=== PATIENT | female | born 1960 | race Caucasian/White ===

== ENCOUNTER 2025-04-30 11:08 | Outpatient (OUT) | payer MEDICARE, SELFPAY ==
[2025-04-30 11:47] LABS: Basophils Percent Auto 0.5 % (0.2-2.0); Eosinophils Absolute Auto 0.1 10^3/uL (0.0-0.7); Eosinophils Percent Auto 2.7 % (0.9-7.0); Hematocrit 34.5 % (36.0-48.0); Hemoglobin 11.1 g/dL (12.0-16.0); Immature Granulocytes Abs Auto 0.01 10^3/uL (0.00-0.03); Immature Granulocytes Pct Auto 0.3 % (0.0-0.5); Lymphocytes Absolute Auto 0.9 10^3/uL (1.2-3.8); Lymphocytes Percent Auto 22.8 % (20.5-60.0); Mean Corpuscular HGB Conc 32.2 g/dL (29.9-35.2); Mean Corpuscular Volume 93.2 fL (81.0-99.0); Mean Platelet Volume 9.9 fL (9.5-13.5); Monocytes Absolute Auto 0.5 10^3/uL (0.3-0.8); Monocytes Percent Auto 11.9 % (1.7-12.0); Neutrophils Absolute Auto 2.3 10^3/uL (1.4-6.5); Neutrophils Percent Auto 61.8 % (43.0-75.0); Platelet Count 170 10^3/uL (150-450); White Blood Count 3.8 10^3/uL (4.0-11.0)
[2025-04-30 11:49] LABS: Bilirubin Urine NEGATIVE (NEGATIVE); Blood Urine NEGATIVE (NEGATIVE); Clarity Urine CLEAR (CLEAR); Color Urine LT. YELLOW (YELLOW); Glucose Urine UA NEGATIVE (NEGATIVE); Ketones Urine NEGATIVE (NEGATIVE); Leukocyte Esterase Urine SMALL (NEGATIVE); Nitrite Urine NEGATIVE (NEGATIVE); Protein Urine NEGATIVE (NEG/TRACE); Urobilinogen Urine 0.2 EU/dL (0.2-1.0)
[2025-04-30 11:50] LABS: Urine Microscopic Indicated YES
[2025-04-30 11:55] LABS: Bacteria Urine TRACE #/HPF (NONE SEEN); Cast Seen? NONE SEEN #/LPF (NONE SEEN); Crystals Seen? None Seen #/HPF (None Seen); Mucus Urine NONE SEEN (NONE SEEN); RBC Urine 0-2 #/HPF (0-2); Squamous Epithelial Cell Urine FEW #/LPF (NONE/RARE)
[2025-04-30 12:11] LABS: Creatinine Urine Random 46.99 mg/dL (20.00-300.00); Microalbum Creatinine Ratio Ur 31.9 mg/g (0.0-29.9); Microalbumin Urine Random 1.5 mg/dL (<=30.0)
[2025-04-30 13:14] LABS: Sodium 148 mmol/L (136-145)
[2025-04-30 13:15] LABS: Alanine Aminotransferase 27 U/L (14-59); Alkaline Phosphatase 89 U/L (46-116); Anion Gap 14.9; Aspartate Amino Transferase 24 U/L (15-37); BUN Creatinine Ratio 38.2; Bilirubin Total 0.7 mg/dL (0.2-1.0); Calcium 9.2 mg/dL (8.5-10.1); Carbon Dioxide 29.1 mmol/L (21.0-32.0); Chloride 108 mmol/L (98-107); Estimated GFR (African America >60 (>=60 mL/min/1.73m^2); Estimated GFR (Non-African Ame >60 (>=60 mL/min/1.73m^2); Glucose 83 mg/dL (74-106)
[2025-04-30 13:16] LABS: Albumin Globulin Ratio 1.2; Albumin Level 3.8 g/dL (3.4-5.0); Chol HDL Ratio 2.2; Cholesterol 148 mg/dL (<=200); Globulin 3.3 g/dL; HDL Cholesterol 68 mg/dL (40-60); Thyroid Stimulating Hormone 1.939 uIU/mL (0.358-3.740); Total Protein 7.1 g/dL (6.4-8.2); Triglycerides 40 mg/dL (<=150)
[2025-04-30 13:31] LABS: Free T4 1.17 ng/dL (0.76-1.46)
== END 2025-04-30 11:09 | disposition home or self-care (01) ==
LOC: LAB 11:16
PROVIDERS: PCP Nurse Practitioner; Visit Provider Nurse Practitioner
DX: E78.2 Mixed hyperlipidemia (principal); I10 Essential (primary) hypertension; E06.3 Autoimmune thyroiditis; J30.1 Allergic rhinitis due to pollen
CPT/HCPCS: 36415; 80053; 80061; 81001; 82043; 82570; 84439; 84443; 85025

== ENCOUNTER 2025-10-09 12:24 | Outpatient (OUT) | payer MEDICARE, SELFPAY ==
--- OUTSIDE RECORDS SUMMARY | 2025-10-09 07:03 | XMS_ITS | Continuity of Care Document ---
Author Organization [facility] Address [address] [place] [address] Phone Care Team Providers Care Lounge Car Attendant Name Role Phone Sonam Ma NP-C Primary Care Provider [phone] Sonam Ma NP-C Attending Provider Care Teams Patient Care Team Team Status: Active Member Role/Relationship Status Dates Sonam Ma NP-Juanito Primary Care Provider Active Patient Care Team Team Status: Inactive Member Role/Relationship Status Dates Sonam Ma NP-C Primary Care Provider Active Start: October 09, 2025 End: October 09, 2025Sonam Ma NP-CAttending ProviderActiveStart: October 09, 2025 End: October 09, 2025 Chief Complaint and Reason for Visit Chief Complaint Admit Date Med Review October 09, 2025 11:30am Reason for Visit Admit Date Essential hypertension October 09 11:30am Hyperlipidemia, unspecified September 11:30am 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 October 09, 2025 11:30am Lower extremity edema October 09 11:30am Microcytic anemia October 09, 2025 11:30am Seasonal allergic rhinitis due to pollen October 09, 2025 11:30am Allergies, Adverse Reactions, Alerts Allergen Type Severity Reaction Last Updated Verified Status latex Allergy Unknown Unknown Reaction October 09, 2025 11:42am Yes Active penicillin G Allergy Unknown hives September 11:42am Yes Active Social History Smoking Status Status Start Date End Date Date of Observa tion Never smoked tobacco (finding) October 02, 2025 2:41pm Observation Status Observation Response Date of Response Legal Sex Female (finding) Sex Assigned At BirthFemaleJuly 1959 Family History Relationship Condition Age at Onset Recorded Date/T tin father Unknown History of malignant neoplasm of prostateUnknownMalignant neoplasmUnknownmother Heart diseaseUnknownHistory of strokeUnknownHypertensionUnknownDeceasedUnknown Problems Active Problems Problem Diagnosis/Recorded Date Onset Date Stat us Encounter for subsequent [facility] wellness visit (AWV) in Medicare patient October 08, 2025 7:39am Unknown A ctive Lower extremity edema October 09, 2025 6:47am Unkno wn Active Colon cancer screening October 08, 2025 7:39am Unkn own Active Encounter for screening mamm ogram for malignant neoplasm of breast October 08, 2025 7:39am Unknown Acti ve Hyperlipidemia, unspecified October 08, 2025 7:41am Unknown Active Other neutropenia October 08, 2025 7:40am Unknown Active Microcytic anemia October 08, 2025 7:40am Unknown Active Essential hypertension September 17, 2025 5:04pm Unkno wn Active 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 October 08, 2025 7:41am Unknown Active Seasonal allergic rhinitis due to pollen September 7:41am Unknown Active Medications Medication Status Dose Units Route Directions Qty Days Refills S tart Date Stop Date End Date Reason(s) Instructions Adherence Carvedilol 25 mg tablet Active 25 MG PO Twice da efra 180 0October 2024 11:00pmPrimary hypertension Essential (primary) hypertensionmust administer with a meal/foodComplies with drug therapyAtorvastatin 20 mg getaaoOzoird15HJQFFxmsd at bedtimeOctober 09, 2025 12:00amComplies with drug therapyLevothyroxine 25 mcg glhhayJxzpiz63QXZVB DailyCaromont Health2024 12:00amComplies with drug therapyFurosemide (Lasix) 20 mg uumoquNzvyvf57ZYNEIjyzuVmlfkaow 13th, 2025 12:00amComplies with drug therapy Losartan 100 mg yfxpxaEmxemh641GXCHOpxcfOuvqzbvl 13th, 2025 12:00amComplies with drug therapyFluticasone Propionate (Flonase Allergy Relief) 50 mcg/actuation spray,jmndygxzcqLxvtowgxhohc1UGDCQQETSWVRSTYXmjyoTxqhaqlw 13th, 2025 12:00am October 09, 2025 11:43amadminister into each nostrilLoratadine 10 mg tablet Lkmpfrhsvtgl11IDSQWbkthIagomuxz 13th, 2025 12:00amNovember 2024 11:43am Fluticasone Propionate (Flonase Allergy Relief) 50 mcg/actuation spray,cphjdixhltVovksd4AMABWTUOYABZNVRFxjqf as neededOctober 09, 2025 11:42am administer into each nostrilComplies with drug therapyLoratadine 10 mg tablet Cqcpqk61XVCVBtwlf as neededOctober 09, 2025 11:42amComplies with drug therapy Vital Signs Vital Reading Result Reference Range Collection Date/Time Height 63 [in_i] October 09, 2025 11:88odUavldy56.98 kgOctober 09, 2025 11:33amBody Eutewdngzvx75.1 [degF]97.6-99.0October 09, 2025 11:33amHeart Rate71 /min 60-100October 09, 2025 11:33amRespiratory rate16 /ubl43-93BsdjkiyxOctober 09, 2025 11:33amOxygen saturation by Pulse yulmozfb92 %95-100October 09, 2025 11:33am BP Ummkcsde177 mm[Hg]100-140October 09, 2025 11:33amBP Geefmknxc71 mm[Hg] 60-100October 09, 2025 11:33amBMI (Body Mass Index)27.7 kg/a7KoxreexvOctober 09, 2025 11:33am Advance Directives Advance Directive Response Recorded Date/ Time Advance Directives No April 30 8 6:31am Insurance Providers Guarantor Kecia Rendon Perry Address [address] [place] [id number] Info.Home Phone: Coverage Status Update:2025 Payer Group Member ID Coverage Type Subscriber Relationship to Subscriber Effective Date Expiration Date Medicare [id number] Julieta Amador Id: [id number] [facility] [address] Home Phone: SelfAARP Health Claims [id number] K Brumbaugh Id: [id number] [address] [place] [address] [place] [id number] Home Phone: selh Encounters Encounter Location(s) Arrival/Admit Date Discharge/Departure Date Discharge/Departure Disposition Provider(s) Departed Physician/ Provider Office Visit -[facility] Family Medicine Stephan October 09, 2025 11:30am October 09, 2025 12:02pm Discharged to home care or self care (routine discharge) LAKISHA CastilloC Recent Diagnosis Onset Date Admit Date Essential hypertension Unknown October 09, 2025 11:30am Hyperlipidemia, unspecified Unknown Goyo morrow 2024 11:30am 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 Unkn own October 09, 2025 11:30am Lower extremity edema Unknown September 272024 11:30am Microcytic anemia Unknown October 09, 2025 11:30am Seasonal allergic rhinitis due to pollen Unknown October 09, 2025 11:30am Assessments Diagnosis Onset Date Resolution Status Admit Date Essential hypertension acuteOctober 09, 2025 11:30amHyperlipidemia, unspecifiedacuteOctober 09, 2025 11:30am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acuteOctober 09, 2025 11:30amLower extremity edemaacuteOctober 09, 2025 11:30amMicrocytic anemia acuteOctober 09, 2025 11:30amSeasonal allergic rhinitis due to pollenacute October 09, 2025 11:30am Plan of Treatment Author [facility] 6:48amon levothyroxine check labs yearly and prn dose change or changes in sxs noted on labs from 04/30/25, ordered iron studies etc, did not complete flonase and loratadine Please check blood pressure daily and record DASH diet Limit caffeine Take medication as directed Contact office if chest pain, pressures, dizziness, shortness of breath, swelling in the legs Recommend slow position changes if you develop dizziness with position changes current meds: carvedilol, losartan on statin therapy check labs yearly and prn dose changes recommend a diet low in fat and processed foods lasix daily limit sodium check labs yealry and prn Future Tests Future scheduled test information is unavailable Pending Tests Pending diagnostic test information is unavailable Future Visits Future appointment information is unavailable Future Procedures Procedure Name Ordered Date Scheduled Date Complete Blood Count Auto Diff October 09 6:48am [facility] 20[facility] 6:48amErythrocyte Sedimentation Rate October 09, 2025 6:48amIron and TIBC ProfileSelect Specialty Hospital 2024 6:48am FerritinCar[facility]2024 6:48amTransferrinSelect Specialty Hospital 2024 6:48am Future Medications Future medication information is unavailable Patient Instructions Patient instructions are unavailable
--- OUTSIDE RECORDS SUMMARY | 2025-10-09 12:29 | XMS_ITS | Clinical Summary ---
Author Organization [facility] Address [address] [place] [address] Care Team Providers Care Document Preparation Specialist Name Role Phone Samuel Cherry MD Primary Care Provider [phone] Zoey Olson NP Unavailable [phone] Allergies Active AllergyReactionsCriticalityNoted HigzFksdmelqQseyjMizyjvi76/21/2024 Penicillin VCczudkb60/21/2024 Medications MedicationSigDispense QuantityRefillsLast FilledStart DateEnd DateStatus carvedilol (Coreg) 25 MG tablet Indications:Primary hypertensionTake 1 tablet (25 mg) by mouth in the morning and 1 tablet (25 mg) in the evening. Take with meals. 180 tablet 5Active fluticasone (Flonase) 50 MCG/ACT nasal spray Indications:Seasonal allergic rhinitis due to pollenAdminister 2 sprays into each nostril Daily Shake gently. Before first use, prime pump. After use, clean tip and replace cap. 48 g 5Active loratadine (Claritin) 10 MG tablet Indications:Seasonal allergic rhinitis due to pollenTake 1 tablet (10 mg) by mouth Daily 90 tablet 5Active losartan (Cozaar) 100 MG tablet Indications:Primary hypertensionTake 1 tablet (100 mg) by mouth Daily 90 tablet 5Active atorvastatin (Lipitor) 20 MG tablet Indications:Hyperlipidemia, unspecified hyperlipidemia typeTake 1 tablet (20 mg) by mouth at bedtime 90 tablet 5Active furosemide (Lasix) 20 MG tablet Indications:Essential (primary) hypertensionTake 1 tablet (20 mg) by mouth Daily 90 tablet /5Active levothyroxine (Synthroid, Levoxyl) 25 MCG tablet Indications:Hypothyroidism due to Tanesha's thyroiditisTake 1 tablet (25 mcg) by mouth in the morning. Take before meals. 90 tablet /5Active Active Problems ProblemNoted DateDiagnosed DateMicrocytic fwhfpq1205/01/2025Other neutropenia 05/01/2025olon cancer /20/2025 Assessment & Plan (04/15/2025 2:04 PM EDT): Colon cancer screening options were discussed with patient, as well as why colon cancer screening is indicated. Options are Colonoscopy: direct visualization, every 10 years (unless indicated more frequently), risks and benefits were discussed Cologuard: every 3 years, risks and benefits were discussed , contraindications were discussed (family hx of colon cancer, colon polyps) Patient has elected to: pt declines Encounter for screening mammogram for malignant neoplasm of galcnj6904/15/2025 Assessment & Plan (04/15/2025 2:04 PM EDT): Recommend mammogram for breast cancer screening Pt declines Encounter for subsequent annual wellness visit (AWV) in Medicare patient 04/15/2025 Assessment & Plan (04/15/2025 2:04 PM EDT): Reviewed Ht/Wt/BMI Recommend eye exam yearly Recommend dental exams twice a year Balance work/leisure activities Exercises is recommended most days of the week (appropriate as chronic conditions allow) Follow up yearly and prn Resistant gpvzehohgbhh80/04/2024 Assessment & Plan (07/31/2024 12:58 PM EDT): Currently taking Carvedilol 25mg Furosemide 20mg Losartan 100mg Has still been taking Atenolol that was D/C'd at previous visit. Advised pt to STOP atenolol. Discussed in thorough detail with patient the importance of taking medications PRESCRIBED, having blood work completed, checking and recording blood pressure DAILY. Pt reluctant to check BP, was given a BP log today in office. Advised to check 3 times weekly initially, record in log, bring back with her to next visit. BP is elevated today in office. Resistant hypertension. DASH diet recommendations given in detail. Denies orthostatic changes, dizziness, cough, shortness of breath, swelling in extremities. Continue current regimen. Referral sent to Cardiology Seasonal allergic rhinitis due to jobdbn8905/15/2024 Assessment & Plan (04/15/2025 6:33 AM EDT): Current meds: flonase nasal sray, as well as loratadine Assessment & Plan (05/15/2024 11:20 AM EDT): Uses claritin and flonase as needed. Works well for her. Primary jphquxbvwuzt94/21/2024 Assessment & Plan (04/15/2025 6:31 AM EDT): Please check blood pressure daily and record DASH diet Limit caffeine Take medication as directed Contact office if chest pain, pressure, dizziness, shortness of breath, swelling legs Recommend slow position changes Current meds: carvedilol, losartan Assessment & Plan (07/31/2024 10:47 AM EDT): Currently taking Carvedilol 25mg Furosemide 20mg Losartan 100mg Does not check BP at brandi; Denies orthostatic changes, dizziness, cough, shortness of breath, swelling in extremities. Continue current regimen. Assessment & Plan (05/15/2024 11:20 AM EDT): Elevated and above goal. She has always been very resistant and reluctant to changes in her regimenbut had agreed to start using Atenolol twice daily. Denies lightheadedness, dizziness, syncope, presyncope. Patient encouraged to continue with home BP monitoring and call office if she experiences orthostatic symptoms or persistently elevated BP. Switch to Coreg. C/w losartan. Uses lasix as needed. Follow up in one month Assessment & Plan (04/16/2024 11:47 AM EDT): Elevated and above goal. Not using her medications as prescribed. She has always been very resistant and reluctant to changes in her regimen. Denies lightheadedness, dizziness, syncope, presyncope. Patient encouraged to continue with home BP monitoring and call office if she experiences orthostatic symptoms or persistently elevated BP. I spent considerable time explaining to her why she needs to be treated for HTN. I stressed upon the importance of regular follow up and monitoring/checking BP at home. She reluctantly agreed to increased her atenolol and losartan. Will follow up in one month with home BP log. Check labs Increase atenolol to 50 q12, losartan to 100 once daily. C/w lasix 20 mg daily. Fxnjzplnyjxfok52/21/2024 Assessment & Plan (04/15/2025 6:32 AM EDT): On statin therapy Check labs yearly and prn dose changes Assessment & Plan (07/31/2024 11:01 AM EDT): Currently taking Atorvastatin 20mg Denies any myalgias. Continue current regimen. Needs lab work completed. Assessment & Plan (04/16/2024 11:47 AM EDT): Uses Lipitor intermittently. Check lipid panel Hypothyroidism due to Tanesha's zjotgrcpemj80/21/2024 Assessment & Plan (04/15/2025 6:32 AM EDT): On levothyroxine Check labs yearly and prn dose changes or changes in sxs Assessment & Plan (07/31/2024 10:51 AM EDT): Currently taking Levothyroxine 25mcg. Needs TSH bloodwork done. Continue current regimen for this time, until labs come back. Assessment & Plan (04/16/2024 11:46 AM EDT): Not on levothyroxine. Check TSH She is supposed to be on 25 mcg daily. Encounters DateTypeDepartmentCare CkfaXfmrirevjjw66/19/2025Refill [facility] [address] [place] [address] Sonam Ma NP Hyperlipidemia, unspecified hyperlipidemia type ; Hypothyroidism due to Tanesha's odjheahnfmq16/16/2025Refill [facility] [address] [place] [address] Sonam Ma NP Hypothyroidism due to Tanesha's jurzmjxxwem52/15/2025Refill [facility] [address] [place] [id number] Sonam Ma NP Primary hypertension ; Hyperlipidemia, unspecified hyperlipidemia type ; Essential (primary) hypertensionfrom Last 3 Months Immunizations ImmunizationAdministration DatesNext DueInfluenza Whole09/14/2009Influenza, High Dose Seasonal, Preservative Free11/14/2024Influenza, High-dose Seasonal, Quadrivalent, Preservative Free10/16/2023Influenza, injectable, MDCK, preservative free, eocziakaglmh40/01/2019,10/04/2018Influenza, injectable, quadrivalent, preservative free09/20/2021Influenza, recombinant, quadrivalent, injectable, preservative free09/01/2022,09/09/2020Novel gejzcdwkg-E4V5-45, preservative-free01/04/2010 Family History Medical HistoryRelationNameCommentsProstate cancerFatherHTNMotherRelationName StatusCommentsFatherDeceasedMotherDeceased Social History Tobacco UseTypesPacks/DayYears UsedDateSmoking Tobacco: NeverPassive Smoke Exposure: NeverSmokeless Tobacco: Never Tobacco Cessation:Counseling Given: No Alcohol UseStandard Drinks/WeekCommentsNever0 (1 standard drink = 0.6 oz pure alcohol)PHQ-2AnswerDate RecordedPatient Health Questionnaire-2 Crbgg103 CommentsUnknownSex and Gender InformationValueDate RecordedSex Assigned at BirthNot on fileLegal KfiAldzuv89/15/2023 11:50 PM EDTGender IdentityNot on fileSexual OrientationNot on file Last Filed Vital Signs Vital SignReadingTime TakenCommentsBlood Wbncdgac670/8204/15/2025 1:10 PM EDT Hlbdp065704/15/2025 1:10 PM KVVGzdzyzfzzhl96.1 ??C (98.8 ??F)04/15/2025 1:10 PM EDTRespiratory Qhsm224404/15/2025 1:10 PM EDTOxygen Hjdcwrayfg56%04/15/2025 1:10 PM EDTInhaled Oxygen Concentration--Zmqwvt10.6 kg (186 lb 9.6 oz)04/15/2025 1:10 PM PDVMjsjjz215 cm (5' 3 )07/31/2024 10:35 AM EDTBody Mass Index33.05007/31/2024 10:35 AM EDT Plan of Treatment Health MaintenanceDue DateLast DoneCommentsCT Onuukogepqyb1958Colonoscopy 1958Colorectal Cancer Osurfawxh1958FIT-DNA1958FIT1958 FOBT1958 8225Grcjwdxqnehqq63/28/6441Hemnvheqz52/28/1998COVID-19 Vaccine ( season)/, 09/20/2021, 03/06/2021, Additional history existsInfluenza Vaccine (#1)/, 10/16/2023, 09/01/2022, Additional history existsPneumococcal Vaccine: 65+ Years (1 of 1 - PCV) 04/15/2026Postponed from 2008 (Patient Refused) Insurance Care Teams Team MemberRelationshipSpecialtyStart DateEnd Date Samuel Cherry MD [address] [place] [address] PCP - GeneralFamily Medicine07/31/24 Zoey Olson NP Nurse PractitionerFamily Medicine07/31/24
[2025-10-09 13:09] LABS: Hematocrit 36.5 % (36.0-48.0); Hemoglobin 12.2 g/dL (12.0-16.0); Immature Granulocytes Abs Auto 0.01 10^3/uL (0.00-0.03); Immature Granulocytes Pct Auto 0.3 % (0.0-0.5); Lymphocytes Absolute Auto 1.0 10^3/uL (1.2-3.8); Mean Corpuscular HGB Conc 33.4 g/dL (29.9-35.2); Mean Corpuscular Hemoglobin 30.3 pg (26.7-34.0); Mean Corpuscular Volume 90.6 fL (81.0-99.0); Platelet Count 173 10^3/uL (150-450); Red Blood Count 4.03 10^6/uL (4.20-5.40); White Blood Count 3.9 10^3/uL (4.0-11.0)
[2025-10-09 13:59] LABS: Iron 71.0 ug/dL (50.0-170.0); Percent Iron Saturation 25.0 %; Total Iron Binding Capacity 284.0 ug/dL (250.0-450.0)
[2025-10-09 14:12] LABS: Ferritin 226.0 ng/mL (8.0-252.0)
[2025-10-10 07:08] LABS: Transferrin 243 mg/dL (192-364)
== END 2025-10-09 12:25 | disposition home or self-care (01) ==
LOC: LAB 12:26
PROVIDERS: PCP Nurse Practitioner; Visit Provider Nurse Practitioner
DX: D50.9 Iron deficiency anemia, unspecified (principal)
CPT/HCPCS: 36415; 82728; 83540; 83550; 84466; 85025; 85652; 86140